=== PATIENT | male | born 1970 | race Caucasian/White ===

== ENCOUNTER 2016-11-17 19:58 | Emergency (ER) | payer SELFPAY ==
[~2016-11-17] VITALS: Ht 175.3 cm; Wt 129.3 kg
[2016-11-17 20:01] VITALS: BP 160/90
--- NOTE | 2016-11-17 22:14 | NUR ---
PT TAKEN TO BED 4
--- NOTE | 2016-11-17 22:22 | NUR ---
Dr. Little evaluating patient at bedside.
--- NOTE | 2016-11-17 22:24 | NUR ---
PATIENT PRESENTS TO ED WITH SOB AND COUGH X2DAYS . PT STATES HE IS COUGHING UP MUCOUS FROM TIME TO TIME. PT DENIES ANY MEDICAL HISTORY . DENIES N/V/D; SKIN IS PINK/WARM/DRY; AAOX4 WITH EVEN AND STEADY GAIT; LUNGS CLEAR BL; HR EVEN AND REGULAR; PT DENIES ANY FEVER AND CP AT THIS TIME; PATIENT STATES PAIN OF 0/10 AT THIS TIME; VSS; PATIENT POSITIONED FOR COMFORT; HOB ELEVATED; BEDRAILS UP X2; BED DOWN. ER MD MADE AWARE OF PT STATUS.
[2016-11-17] MEDS ORDERED: predniSONE 20 MG TAB PO ONE (22:30)
[2016-11-17] MEDS ORDERED: ALBUTEROL SULFATE/IPRATROPIU 3 ML SOL IH ONE ×2 (22:30→23:50)
--- NOTE | 2016-11-17 23:36 | NUR ---
WILLYD MADE AWARE OF PT CURRENT BP
--- NOTE | 2016-11-17 23:50 | NUR ---
Respiratory Therapist at bedside for respiratory intervention. Patient tolerated WELL.
[2016-11-18] MEDS ORDERED: PHENYLEPHRINE 0.5% 15 ML BTL NS ONE (00:20)
[2016-11-18 00:50] VITALS: BP 154/90
--- NOTE | 2016-11-18 00:52 | NUR ---
Patient discharged with v/s stable. Written and verbal after care instructions given and explained. Patient alert, oriented and verbalized understanding of instructions. Ambulatory with steady gait. All questions addressed prior to discharge. ID band removed. Patient advised to follow up with PMD. Rx of ALBUTEROL, AZITHROMYCIN 250MG DAILY AND PREDNISONE given. Patient educated on indication of medication including possible reaction and side effects. Opportunity to ask questions provided and answered.
== END 2016-11-18 00:52 | disposition home or self-care (01) ==
LOC: MED 19:58
DX: J20.9 Acute bronchitis, unspecified (principal)
CPT/HCPCS: 71010; 94640; 99284; J7512; J7620; Q0092